=== PATIENT | female | born 1945 | race Caucasian/White ===

== ENCOUNTER 2017-07-13 20:29 | Emergency (ER) | payer OTHER ==
[~2017-07-13] VITALS: Ht 157.5 cm; Wt 60.5 kg
[~2017-07-13 20:29] MED LIST: ALKA-SELTZER125 MG PO; ANTIVERT25 MG PO; ARICEPT 5 MG TAB5 MG PO; ASPIR 8181 MG PO; ASPIRIN EC81 M1 PO; ASPIRIN325 PO; ATORVASTATIN CA10 MG PO; B COMPLEX1 EAC1 PO; B12 PO; CALCIUM 600 +1 EAC1 PO; CELEXA40 MG PO; CENTRUM SILVER1 EAC1 PO; CENTRUM SILVER1 EAC3 PO; CENTRUM SILVER1 EAC4 PO; CHILDREN'S ASPI81 MG PO; CHLORTHALIDONE25 MG PO; CLONAZEPAM 1 MG1 M1 PO; CLONAZEPAM PO; COLACE100 MG PO; Centrum Silver Ultra; DEXAMETHASONE4 MG PO; ENDOCET 7.5-321 EACH PO; FLAGYL500 MG PO; GLIPIZIDE 5 MG T5 MG PO; GLUCOPHAGE1000 MG PO; GLUCOTROL XL5 MG PO; HYSINGLA ER60 MG PO; K-DUR10 ME1 PO; KRILL OIL 1,001 EAC1 PO; LASIX 40 MG TAB40 M1 PO; LEVAQUIN 500 M500 M1 PO; LISINOPRIL10 MG PO; LOPRESSOR 50 MG50 M1 PO; LOVAZA1000 MG PO; LYRICA 50 MG50 MG PO; MAGIC MOUTHWASH PO; MAGNESIUM OXID400 MG PO; MECLIZINE HCL12.5 MG PO; MELATONIN5 M1 PO; MIRALAX17 G1 PO; MIRALAX255 GM PO; MOBIC7.5 MG PO; MS CONTIN15 MG PO; NEXIUM40 MG PO; NITROGLYCERIN0.4 MG SUBLING; NORCO 5-325 TA1 EACH PO; NORMAL SALINE; NORTRIPTYLINE H75 M1 PO; OMEPRAZOLE40 MG PO; OXYCODONE HCL E15 MG PO; OXYCODONE HCL5 M1; OXYCONTIN10 M1 PO; OXYCONTIN15 MG PO; OXYCONTIN20 M1 PO; PEPCID40 MG PO; PERCOCET 7.5-31 EACH PO; POTASSIUM 25 M25 MEQ PO; POTASSIUM99 M1 PO; PRILOSEC20 MG PO; PROBIOTIC1 EAC1 PO; PROPRANOLOL 4040 M1 PO; Potassium PO; QUESTRAN PACKET4 GM PO; REMERON15 MG PO; SENEXON-S TABL1 EACH PO; SENOKOT-S TABL1 EACH PO; SERTRALINE HCL50 MG PO; TRAMADOL 50 MG50 MG PO; VITAMIN B-121000 MCG PO; VITAMIN B-6100 MG PO; ZOCOR40 MG PO; ZOFRAN ODT4 MG PO; ZOLOFT 50 MG TA50 M1 PO; [UNRECOGNIZED DRUG - OTHER] PO
[2017-07-13 20:52] LABS: URINE BILIRUBIN NEGATIVE (Negative); URINE BLOOD NEGATIVE (Negative); URINE CLARITY CLEAR; URINE COLOR YELLOW; URINE GLUCOSE-RANDOM NEGATIVE (Negative); URINE KETONES NEGATIVE (Negative); URINE LEUKOCYTES-REFLEX NEGATIVE (Negative); URINE NITRITE-REFLEX NEGATIVE (Negative); URINE PROTEIN NEGATIVE (Negative); URINE SPECIFIC GRAVITY 1.025 (1.005-1.030); URINE UROBILINOGEN 0.2 E.U./dl (0.2-1.0)
[2017-07-13 21:06] LABS: HEMATOCRIT 32.9 % (37.0-47.0); HEMOGLOBIN 10.9 gm/dL (12.0-15.0); MCH 28.9 pg (26.0-34.0); MCV 87.4 fL (80.0-100.0); MPV 7.4 fl. (7.2-11.1); NUCLEATED RBCS 0 /100WBC; PLATELET COUNT* 267 thou/uL (150-400); RBC 3.77 mil/uL (4.20-5.00); RDW-CV 14.3 % (10.5-14.5); WBC 10.3 thou/uL (4.0-11.0)
[2017-07-13 21:16] LABS: ANION GAP 9 mmol/L (7-16); APTT 27.4 Seconds (25.0-31.3); BUN 20 mg/dL (7-18); CALCIUM 8.3 mg/dL (8.5-10.1); CHLORIDE 103 mmol/L (98-107); CO2 27 mmol/L (21-32); GLUCOSE 119 mg/dL (70-99); INR 1.1; POTASSIUM 4.2 mmol/L (3.5-5.1); PROTIME 10.5 Seconds (9.20-11.50); SODIUM 139 mmol/L (136-145)
[2017-07-13 21:23] LABS: ABSOLUTE EOSINOPHILS 0.3 thou/uL (0.0-0.7); ABSOLUTE LYMPHOCYTES 0.6 thou/uL (0.8-5.3); ABSOLUTE MONOCYTES 0.2 thou/uL (0.0-1.2); ABSOLUTE NEUTROPHILS 9.2 thou/uL (1.6-8.1); PLATELET ESTIMATE ADEQUATE
[2017-07-13 21:32] LABS: ALBUMIN 3.2 g/dL (3.4-5.0); ALKALINE PHOSPHATASE 100 U/L (46-116); CK-MB MASS < 0.5 ng/mL (<0.5-3.6); NT-PRO BRAIN NAT PEPTIDE 126 pg/mL (<300); SGOT 24 U/L (15-37); SGPT 26 U/L (30-65); TOTAL BILIRUBIN 0.1 mg/dL (<0.1-1.0); TROPONIN-I LEVEL <0.06 ng/mL (<0.06)
[2017-07-13 22:42] VITALS: BP 135/76
--- NOTE | 2017-07-14 10:21 | EKG ---
[place] [address] ELECTROCARDIOGRAM REPORT Name: OMER DICK Room: [facility]#: [id number] Admission: 07/13/17 Attend Phys: Discharge: 07/13/17 Date of : 41 Report #: [id number] THIS REPORT FOR: //name// [facility] ED Test Date: 2017-07-13 Test Time: 21:26:39 Pat Name: OMER DICK Department: Room: Gender: F Economic Manager: : 1945 Requested By: Jonny Casas Order Number: [id number] MD: Christopher Hastings Measurements Intervals [place] Rate: 112 P: 61 MN: 188 QRS: 49 QRSD: 91 T: 30 QT: 336 QTc: 459 Interpretive Statements Sinus tachycardia Probable left atrial enlargement Low voltage, precordial leads Compared to ECG 03/19/2017 20:20:10 No significant changes Electronically Signed On 07-14-2017 10:21:42 [employer] by Christopher Hastings [email or web address] <ELECTRONICALLY SIGNED> By: Chrisotpher Hastings MD, [facility] 07/14/17 1021 25 25 Christopher Hastings MD, [facility] /EPI
== END 2017-07-13 22:43 | disposition home or self-care (01) ==
LOC: M.ERS 20:29
PROVIDERS: Family Medicine
DX: R41.82 Altered mental status, unspecified (principal); E11.9 Type 2 diabetes mellitus without complications; I10 Essential (primary) hypertension; K21.9 Gastro-esophageal reflux disease without esophagitis; M81.0 Age-related osteoporosis without current pathological fracture; M19.90 Unspecified osteoarthritis, unspecified site; Z90.710 Acquired absence of both cervix and uterus; Z95.5 Presence of coronary angioplasty implant and graft; Z88.8 Allergy status to other drugs, medicaments and biological substances